=== PATIENT | male | born 1950 | race Caucasian/White ===

== ENCOUNTER 2019-01-30 10:44 | Day surgery (SDC) | payer MEDICARE, OTHER ==
[~2019-01-30] VITALS: Ht 185.4 cm; Wt 102.3 kg
[2019-01-30] MEDS ORDERED: FINA5 (11:55)
[2019-01-30] MEDS ORDERED: TAMS.4ER (11:56)
== END 2019-01-30 14:05 | disposition home or self-care (01) ==
LOC: ORSCSDS 10:44
PROVIDERS: Podiatrist Foot & Ankle Surgery
PROC: 0SPG04Z Removal of Internal Fixation Device from Left Ankle Joint, Open Approach (ICD-10-PCS; principal; 2019-01-30 12:30)
DX: T84.84XA Pain due to internal orthopedic prosthetic devices, implants and grafts, initial encounter (principal); Z96.9 Presence of functional implant, unspecified; M19.072 Primary osteoarthritis, left ankle and foot; J45.909 Unspecified asthma, uncomplicated; K21.9 Gastro-esophageal reflux disease without esophagitis; Z79.899 Other long term (current) drug therapy
CPT/HCPCS: J0171; J1100; J2250; J2405; J2704; J3010; J7120

== ENCOUNTER 2019-04-25 14:56 | Observation (INO) | payer MEDICARE, OTHER ==
[~2019-04-25] VITALS: Ht 188 cm; Wt 104.6 kg
[~2019-04-25 14:56] MED LIST: FINA5; OMEPRAZOLE20 MG PO; TAMS.4ER
--- NOTE | 2019-04-26 09:24 | NUR ---
Ambulatory in Day Surgery History, Chart, Medications and Allergies reviewed before start of procedure.Lungs clear T/O to Auscultation. Patient confirms NPO status and agrees with scheduled surgery. Patient reports completing Chlorhexadine shower X2 prior to admission to hospital.Surgical site prepped with 2% Chlorhexidine cloth wipe. Patient States Post-Procedure ride home has been arranged.
--- NOTE | 2019-04-26 17:58 | NUR ---
SUMMARY SITTING UP IN CHAIR EATING DINNER. PATIENT REPORTS PAIN IS ADEQUATELY CONTROLLED. PT REPORTS VERY SLIGHT TINGLING TO LEFT TOES. TOES PINK, WARM WITH PEDAL PULSES INTACT. PT STATES HE DID WELL USING CRUTCHES TO WALL WITH PT AND ANTICIPATES DISCHARGE TO HOME IN THE MORNING
--- NOTE | 2019-04-27 04:16 | NUR ---
SHIFT SUMMARY POD 1 LEFT TOTAL ANKLE AND ACHILLES LENGTHENING PT AAOX4 DBP ELEVATED , RECHECKED 30 MIN LATER AND BACK TO WNL. PT MEDICATED FOR PAIN PER EMAR. TOLERATING PO WELL. PT AMBULATED WITH WALKER STBY ASSIST WITH GAIT BELT. FOLLOWS PRECAUTIONS WELL. PT SLEEPING DURING SHIFT. PLAN IS TO GO HOME TODAY.
[2019-04-27 05:00] LABS: BASOPHILS ABSOLUTE AUTO 0.02 K/mm3 (0.00-0.23); BASOPHILS PERCENT AUTO 0 % (0-2); EOSINOPHILS ABSOLUTE AUTO 0.01 K/mm3 (0.00-0.68); EOSINOPHILS PERCENT AUTO 0 % (0-6); Hematocrit 42.7 % (37.0-53.0); Hemoglobin 14.1 g/dL (13.5-17.5); IMMATURE GRAN ABSOLUTE AUTO 0.09 K/mm3 (0.00-0.10); IMMATURE GRAN PERCENT AUTO 1 % (0-1); LYMPHOCYTES PERCENT AUTO 9 % (21-46); MONOCYTES ABSOLUTE AUTO 1.18 K/mm3 (0.16-1.47); MONOCYTES PERCENT AUTO 8 % (4-13); Mean Corpuscular HGB 31.5 pg (26.0-34.0); Mean Corpuscular Volume 96 fL (80-100); NEUTROPHILS PERCENT AUTO 82 % (41-73); Platelet Count 210 K/mm3 (150-400); RDW Coefficient Variation 12.1 % (11.7-14.2); RDW Standard Deviation 42.9 fL (35.1-46.3); Red Blood Cell Count 4.47 M/mm3 (4.30-5.90)
[2019-04-27 05:39] LABS: Anion Gap 7 mmol/L (6-16); Blood Urea Nitrogen 18 mg/dL (8-24); Bun/Creatinine Ratio 20.9 (12.0-20.0); CO2, Blood 24 mmol/L (21-32); Calcium, Blood 8.3 mg/dL (8.5-10.1); Chloride, Blood 107 mmol/L (98-108); Creatinine, Blood 0.86 mg/dL (0.60-1.20); Glomerular Filtration Rate >60 (60-); Glucose, Blood 111 mg/dL (70-99); Potassium, Blood 4.1 mmol/L (3.5-5.5); Sodium, Blood 138 mmol/L (136-145)
[2019-04-27] MEDS ORDERED: Senna Plus Tab1 EACH PO (11:15)
[2019-04-27] MEDS ORDERED: Percocet 5-3251 EACH PO (11:22)
--- NOTE | 2019-04-27 13:05 | NUR ---
PATIENT D/C'D HOME WITH SO AT THIS TIME; STATES UNDERSTANDING OF WOUND CARE, MEDS, F/U APPT, ACTIVITY, ETC. PATIENT STATES PAIN CONTROLLED, TOLERATING PO, VOIDING.
--- NOTE | 2019-05-02 13:41 | NUR ---
05/02/19 1341 Filomena Calero VERIFICATIONS: EDIT CHART.
== END 2019-04-27 13:05 | disposition home or self-care (01) ==
LOC: SURS 04-26 08:44 → PRE IP 04-26 08:44 → SURS 04-26 08:44 → PRE IP 04-26 10:00 → SURS 04-26 15:25
PROVIDERS: Nurse Practitioner Acute Care; Podiatrist Foot & Ankle Surgery; ADMIT Hospitalist
PROC: 0SRG0JZ Replacement of Left Ankle Joint with Synthetic Substitute, Open Approach (ICD-10-PCS; principal; 2019-04-26 10:00)
DX: M19.072 Primary osteoarthritis, left ankle and foot (principal); M24.572 Contracture, left ankle; K21.9 Gastro-esophageal reflux disease without esophagitis; J45.909 Unspecified asthma, uncomplicated; Z88.5 Allergy status to narcotic agent; Z88.2 Allergy status to sulfonamides; Z79.899 Other long term (current) drug therapy; Z85.46 Personal history of malignant neoplasm of prostate
CPT/HCPCS: 36415; 73610; 80048; 85025; 86850; 86900; 86901; 88300; 97110; 97116; 97162; 97165; 97535; C1713; C1776; G0378; J0171; J0735; J1100; J1885; J2250; J2405; J2704; J2795; J3010; J3370; J7120

== ENCOUNTER 2019-06-13 14:24 | Inpatient (IN) | payer MEDICARE, OTHER ==
[~2019-06-13] VITALS: Ht 188 cm; Wt 95.8 kg
[~2019-06-13 14:24] MED LIST changes: +Percocet 5-3251 EACH PO; +Senna Plus Tab1 EACH PO
[2019-06-13] MEDS ORDERED: TAMS.4ER PO (16:47)
[2019-06-13] MEDS ORDERED: FINA5 PO (17:03)
--- NOTE | 2019-06-13 18:37 | NUR ---
06/13/19 183 Aaliyah Lizama PT ON SCHEDULED ANTIBIOTICS
--- NOTE | 2019-06-13 19:53 | NUR ---
ARRIVAL. PT ARRIVED TO UNIT FROM OR VIA GURNEY. PT TRANSFERED TO BED WITH 4 ASSIST AND SLIDE SHEET. PT DENIES PAIN. ABLE TO HELP WITH REPOSITIONING AND ROLLING TO REMOVE LINENS. LEFT LEG IS MOIST DRESSING FROM OR DRIES. CAP REFILL IN LEFT FOOT <3, SENSATION INTACT. PT DENIES N/T. PT AND GUEST ORIENTED TO UNIT, CALL LIGHT IN REACH.
[2019-06-13 20:30] LABS: BASOPHILS ABSOLUTE AUTO 0.03 K/mm3 (0.00-0.23); BASOPHILS PERCENT AUTO 0 % (0-2); EOSINOPHILS ABSOLUTE AUTO 0.14 K/mm3 (0.00-0.68); EOSINOPHILS PERCENT AUTO 1 % (0-6); Hematocrit 41.1 % (37.0-53.0); Hemoglobin 13.6 g/dL (13.5-17.5); IMMATURE GRAN ABSOLUTE AUTO 0.05 K/mm3 (0.00-0.10); IMMATURE GRAN PERCENT AUTO 0 % (0-1); LYMPHOCYTES ABSOLUTE AUTO 0.99 K/mm3 (0.84-5.20); LYMPHOCYTES PERCENT AUTO 9 % (21-46); MONOCYTES ABSOLUTE AUTO 1.23 K/mm3 (0.16-1.47); MONOCYTES PERCENT AUTO 11 % (4-13); Mean Corpuscular HGB 30.7 pg (26.0-34.0); Mean Corpuscular HGB Conc 33.1 g/dL (31.5-36.5); Mean Corpuscular Volume 93 fL (80-100); Mean Platelet Volume 8.6 fL (9.1-12.4); NEUTROPHILS ABSOLUTE AUTO 9.09 K/mm3 (1.96-9.15); NEUTROPHILS PERCENT AUTO 79 % (41-73); Platelet Count 282 K/mm3 (150-400); RDW Coefficient Variation 11.6 % (11.7-14.2); RDW Standard Deviation 39.7 fL (35.1-46.3); Red Blood Cell Count 4.43 M/mm3 (4.30-5.90); White Blood Cell Count 11.53 K/mm3 (4.00-11.30)
--- NOTE | 2019-06-13 20:37 | NUR ---
Post surgical patient is A&Ox3 presents calm witth good eye contact soft speech gave permission @2038 for this student to give care 06/14/2019.
[2019-06-13 20:48] LABS: Alanine Aminotransfer (ALT/SGP 29 U/L (12-78); Albumin, Blood 3.3 g/dL (3.4-5.0); Albumin/Globulin Ratio 0.8 (0.8-1.8); Alk Phos 84 U/L (50-136); Anion Gap 4 mmol/L (6-16); Aspartate Aminotrans (AST/SGOT 17 U/L (12-37); Bilirubin, Total 0.4 mg/dL (0.1-1.0); Blood Urea Nitrogen 16 mg/dL (8-24); Bun/Creatinine Ratio 18.7 (12.0-20.0); CO2, Blood 27 mmol/L (21-32); Calcium, Blood 8.6 mg/dL (8.5-10.1); Chloride, Blood 108 mmol/L (98-108); Creatinine, Blood 0.86 mg/dL (0.60-1.20); Globulin, Blood 3.9 g/dL (2.2-4.0); Glomerular Filtration Rate >60 (60-); Glucose, Blood 133 mg/dL (70-99); Sodium, Blood 139 mmol/L (136-145); Total Protein, Blood 7.2 g/dL (6.4-8.2)
[2019-06-14 04:48] LABS: BASOPHILS ABSOLUTE AUTO 0.04 K/mm3 (0.00-0.23); BASOPHILS PERCENT AUTO 0 % (0-2); EOSINOPHILS ABSOLUTE AUTO 0.21 K/mm3 (0.00-0.68); EOSINOPHILS PERCENT AUTO 2 % (0-6); Hematocrit 36.8 % (37.0-53.0); Hemoglobin 12.3 g/dL (13.5-17.5); IMMATURE GRAN ABSOLUTE AUTO 0.04 K/mm3 (0.00-0.10); IMMATURE GRAN PERCENT AUTO 0 % (0-1); LYMPHOCYTES ABSOLUTE AUTO 1.54 K/mm3 (0.84-5.20); LYMPHOCYTES PERCENT AUTO 15 % (21-46); MONOCYTES ABSOLUTE AUTO 1.59 K/mm3 (0.16-1.47); MONOCYTES PERCENT AUTO 15 % (4-13); Mean Corpuscular HGB 31.2 pg (26.0-34.0); Mean Corpuscular HGB Conc 33.4 g/dL (31.5-36.5); Mean Corpuscular Volume 93 fL (80-100); Mean Platelet Volume 8.9 fL (9.1-12.4); NEUTROPHILS ABSOLUTE AUTO 7.11 K/mm3 (1.96-9.15); NEUTROPHILS PERCENT AUTO 68 % (41-73); Platelet Count 273 K/mm3 (150-400); RDW Coefficient Variation 11.6 % (11.7-14.2); RDW Standard Deviation 39.8 fL (35.1-46.3); Red Blood Cell Count 3.94 M/mm3 (4.30-5.90); White Blood Cell Count 10.53 K/mm3 (4.00-11.30)
[2019-06-14 05:11] LABS: Anion Gap 7 mmol/L (6-16); Blood Urea Nitrogen 12 mg/dL (8-24); Bun/Creatinine Ratio 15.1 (12.0-20.0); CO2, Blood 25 mmol/L (21-32); Calcium, Blood 8.3 mg/dL (8.5-10.1); Chloride, Blood 107 mmol/L (98-108); Creatinine, Blood 0.79 mg/dL (0.60-1.20); Glomerular Filtration Rate >60 (60-); Glucose, Blood 93 mg/dL (70-99); Potassium, Blood 3.9 mmol/L (3.5-5.5); Sodium, Blood 139 mmol/L (136-145)
--- NOTE | 2019-06-14 06:10 | NUR ---
SHIFT SUMMARY POD 1 I&D LEFT ANKLE. AAOX4,VSS. PT MEDICATED WITH FENT FOR BREAKTHROUGH PAIN AND NEWLY ORDERED NORCO HAS BEEN CONTROLLING PAIN. PT REPORTED BEING ABLE TO GET SLEEP. WOUND VAC IS DRAINING SMALL AMOUNT SS DRAINAGE. SENSATION INTACT IN RIGHT FOOT, CAP REFILL <3, WIGGLES TOES. TOLERATING PO WELL, DRINKING FLUIDS FREQUENTLY. PT VOIDING IN URINAL.
--- NOTE | 2019-06-14 17:44 | NUR ---
SHIFT SUMMARY PT A&OX4, VSS, POD1 I&D LLE, NWB, WIGGLES TOES, GOOD SENSATION AND CAP REFILL, ELEVATED ON PILLOWS. PAIN MANAGED WITH 10 MG PERCOCET AND TORADOL. LOUIE PO, DENIES N&V. VOIDING WELL USING URINAL. PLAN IS TO RETURN TO OR ON WEDNESDAY FOR SUTURES OR WOUND VAC CHANGE WHILE RECEIVING ABX IN MEANTIME. WILL REPORT TO ONCOMING NOC RN.
--- NOTE | 2019-06-15 04:58 | NUR ---
SHIFT SUMMARY: ABBY HAS RESTED INTERMITTENTLY DURING THE NIGHT. HE IS TOLERATING PO INTAKE WELL. HE IS USING THE URINAL WITHOUT DIFFICULTY. THE TOES OF HIS LEFT FOOT HAVE <3 SECOND CAPILLARY REFILL. ABOVE THE RAMY WRAP HIS CALF IF SWOLLEN AND WARM TO THE TOUCH. HE REPORTS THAT IT IS IMPROVING SINCE SURGERY. HE REPOSITIONS HIMSELF FREQUENTLY IN BED. HE USES HIS CALL LIGHT APPROPRIATELY. THE WOUND VAC IS PATENT, DRAINING SS FLUID. IV TO LEFT FOREARM PATENT. HE IS LYING COMFORTABLY IN BED WITH HIS CALL LIGHT IN REACH.
[2019-06-15 09:30] LABS: Vancomycin, Trough 12.6 ug/mL (5.0-10.0)
--- NOTE | 2019-06-15 16:24 | NUR ---
SHIFT SUMMARY PT A&OX4, VSS, POD2 I&D LLE, WOUND VAC IN PLACE. NWB, WIGGLES TOES, GOOD SENSATION AND CAP REFILL, ELEVATED ON PILLOWS. PAIN MANAGED WITH 10 MG PERCOCET AND TORADOL. LOUIE PO, DENIES N&V. VOIDING WELL USING URINAL. PLAN IS TO RETURN TO OR ON WEDNESDAY - PT TO BE NPO AT MIDNIGHT. WILL REPORT TO ONCOMING NOC RN.
--- NOTE | 2019-06-16 04:43 | NUR ---
SHIFT SUMMARY POD 3 S/P LEFT FOOT I/D. WOUND VAC TO LLE IN PLACE, RAMY WRAP C/D/I. NPO SINCE MIDNIGHT, PER ORDERS. REPORTS VOIDING WITHOUT DIFFICULTY AND PASSING FLATUS. PAIN MANAGED WITH 2 PO TABS. APPEARS TO HAVE RESTED WELL T/O SHIFT. IS CURRENTLY RESTING IN BED WITH CALL LIGHT IN HAND. PLAN FOR OR THIS MORNING. WILL CONT TO MONITOR AND GIVE REPORT TO ONCOMING RN.
--- NOTE | 2019-06-16 06:31 | NUR ---
PT TO OR AT THIS TIME
--- NOTE | 2019-06-16 06:43 | NUR ---
RAMY WRAP TO LLE INTACT, NO CHLORHEXIDINE PREP DONE.
--- NOTE | 2019-06-16 06:57 | NUR ---
LLE elevated on a pillow. History, Chart, Medications and Allergies reviewed before start of procedure. Patient confirms NPO status and agrees with scheduled surgery. Patient reports leaving his partial dentures at home.
--- NOTE | 2019-06-16 07:06 | NUR ---
PATIENT IS CURRENTLY OUT OF ROOM TO OR
[2019-06-16 10:25] LABS: Anion Gap 5 mmol/L (6-16); Blood Urea Nitrogen 9 mg/dL (8-24); Bun/Creatinine Ratio 10.8 (12.0-20.0); CO2, Blood 26 mmol/L (21-32); Calcium, Blood 8.6 mg/dL (8.5-10.1); Chloride, Blood 109 mmol/L (98-108); Creatinine, Blood 0.83 mg/dL (0.60-1.20); Glomerular Filtration Rate >60 (60-); Glucose, Blood 88 mg/dL (70-99); Potassium, Blood 4.2 mmol/L (3.5-5.5); Sodium, Blood 140 mmol/L (136-145)
--- NOTE | 2019-06-16 10:30 | NUR ---
[address] DAVENPORT REGARDINGPATIENTS POST OP ACTIVITY. DISCUSSED WITH PATIENT THAT HE IS NOT TO BEND LEFT ANKLE, NWB AND IS TO KEEP ICE BEHIND LEFT KNEE AND ELEVATE LEFT LEG. PATIENT VERBALIZES UNDERSTANDING OF POST OP RESTRICTIONS
--- NOTE | 2019-06-16 12:31 | NUR ---
PATIENT CONCERNED THAT SPLINT IS DAMP, REQUESTS DR DAVENPORT BE CONTACTED PATIENT STATES IT WAS STRESSED TO HIM THAT LEFT LEG BE KEPT DRY. SPOKE WITH DR DAVENPORT REGARDING PATINTS CONCERNS , NO NEW ORDERS
--- NOTE | 2019-06-16 18:32 | NUR ---
LEFT ANKLE ELEVATED AND ICED THROUGHOUT SHIFT. REINFORCED THROUGHOUT SHIFT WITH PATIENT, THE IMPORTANCE OF NON WEIGHT BEARING AND NO MOVEMENT OF LEFT ANKLE- PT VERBALIZES UNDERSTANDING. PT REPORTS ADEQUATE PAIN CONTROL. DENIES ANY NUMBNESS OR TINGLING.
--- NOTE | 2019-06-17 05:07 | NUR ---
SHIFT SUMMARY POD 1 2ND I&D OF LEFT ANKLE/LEG AA0X4, VSS. PT UP TO RESTROOM AND VOIDING. HAVE REEDUCATED PT ON IMPORTANCE OF NWB STATUS. PT HAS BEEN COMPLIANT. TOLERATING PO WELL. MEDICATED FOR PAIN X1 DURING SHIFT. DRESSING CDI.
[2019-06-17] MEDS ORDERED: Percocet 5-3251 EACH PO (11:15)
[2019-06-17] MEDS ORDERED: ACET325 PO (11:45)
[2019-06-17] MEDS ORDERED: Milk Of Ma400 MG/5 M PO (11:47)
[2019-06-17] MEDS ORDERED: Florastor250 MG PO (11:48)
[2019-06-17] MEDS ORDERED: Bactrim Ds Tab1 EACH PO (11:48)
--- NOTE | 2019-06-19 10:25 | NUR ---
06/19/19 1025 Dora Landry VERIFICATIONS, AUDITS.
== END 2019-06-17 15:20 | disposition home or self-care (01) | DRG 863 ==
LOC: ER 14:24 → SURS 17:31
PROVIDERS: Podiatrist Foot & Ankle Surgery; ADMIT Internal Medicine
PROC: 0HDNXZZ Extraction of Left Foot Skin, External Approach (ICD-10-PCS; principal; 2019-06-13 17:45)
PROC: 0HDNXZZ Extraction of Left Foot Skin, External Approach (ICD-10-PCS; 2019-06-16)
DX: T81.42XA Infection following a procedure, deep incisional surgical site, initial encounter (principal); L03.116 Cellulitis of left lower limb; K21.9 Gastro-esophageal reflux disease without esophagitis; Z87.891 Personal history of nicotine dependence; Z85.46 Personal history of malignant neoplasm of prostate; J45.909 Unspecified asthma, uncomplicated; N40.0 Benign prostatic hyperplasia without lower urinary tract symptoms
CPT/HCPCS: 36415; 73610; 80048; 80053; 80202; 84145; 85025; 85651; 86140; 87040; 87070; 87075; 87077; 87147; 87186; 87205; 96374; 97110; 97112; 97161; 97165; 97535; 99285-25; A9270-GY; J1170; J1885; J2250; J2405; J2704; J2765; J3010; J3260; J3370; J7050; J7120; Q0163

== ENCOUNTER 2019-06-29 14:14 | Inpatient (IN) | payer MEDICARE, OTHER ==
[~2019-06-29] VITALS: Ht 185.4 cm; Wt 103.8 kg
[~2019-06-29 14:14] MED LIST changes: +ACET325 PO; +Bactrim Ds Tab1 EACH PO; +FINA5 PO; +Florastor250 MG PO; +Milk Of Ma400 MG/5 M PO; +TAMS.4ER PO
[2019-06-29 14:48] LABS: BASOPHILS ABSOLUTE AUTO 0.05 K/mm3 (0.00-0.23); BASOPHILS PERCENT AUTO 0 % (0-2); EOSINOPHILS ABSOLUTE AUTO 0.19 K/mm3 (0.00-0.68); EOSINOPHILS PERCENT AUTO 2 % (0-6); Hematocrit 42.2 % (37.0-53.0); Hemoglobin 14.1 g/dL (13.5-17.5); IMMATURE GRAN ABSOLUTE AUTO 0.06 K/mm3 (0.00-0.10); IMMATURE GRAN PERCENT AUTO 1 % (0-1); LYMPHOCYTES ABSOLUTE AUTO 1.59 K/mm3 (0.84-5.20); LYMPHOCYTES PERCENT AUTO 13 % (21-46); MONOCYTES ABSOLUTE AUTO 1.15 K/mm3 (0.16-1.47); MONOCYTES PERCENT AUTO 10 % (4-13); Mean Corpuscular HGB 30.3 pg (26.0-34.0); Mean Corpuscular HGB Conc 33.4 g/dL (31.5-36.5); Mean Corpuscular Volume 91 fL (80-100); Mean Platelet Volume 8.4 fL (9.1-12.4); NEUTROPHILS PERCENT AUTO 75 % (41-73); Platelet Count 415 K/mm3 (150-400); RDW Coefficient Variation 11.8 % (11.7-14.2); Red Blood Cell Count 4.66 M/mm3 (4.30-5.90); White Blood Cell Count 12.04 K/mm3 (4.00-11.30)
[2019-06-29 15:06] LABS: Alanine Aminotransfer (ALT/SGP 17 U/L (12-78); Albumin, Blood 3.2 g/dL (3.4-5.0); Anion Gap 10 mmol/L (6-16); Aspartate Aminotrans (AST/SGOT 17 U/L (12-37); Blood Urea Nitrogen 19 mg/dL (8-24); CO2, Blood 20 mmol/L (21-32); Chloride, Blood 108 mmol/L (98-108); Glucose, Blood 103 mg/dL (70-99); Potassium, Blood 3.9 mmol/L (3.5-5.5); Sodium, Blood 138 mmol/L (136-145)
[2019-06-29 15:10] LABS: Albumin/Globulin Ratio 0.6 (0.8-1.8); Alk Phos 79 U/L (50-136); Bilirubin, Total 0.6 mg/dL (0.1-1.0); Bun/Creatinine Ratio 20.5 (12.0-20.0); Creatinine, Blood 0.93 mg/dL (0.60-1.20); Glomerular Filtration Rate >60 (60-); Total Protein, Blood 8.2 g/dL (6.4-8.2)
[2019-06-29] MEDS ORDERED: OMEP20ER PO (17:02)
--- NOTE | 2019-06-29 18:06 | NUR ---
BAG OF CLOTHES COAT AND CRUTCHES TAKE TO ROOM 364. PATIENT STATES CELL PHONE IN BAG
--- NOTE | 2019-06-30 04:09 | NUR ---
SHIFT SUMMARY ASSUMED CARE OF PT AT 1950. PT IS A/O X3 AND STATES HE HAS NUMBNESS IN HIS EXTREMITIES. HEART SOUNDS REGULAR, LUNG SOUNDS CLEAR PT DENIES CP/SOB AT THIS TIME. PT HAS A WOUND VAC ON HIS L ANKLE, DRAINING MODERATE AMOUNT OF RED FLUIDS, DRESSING TO BE CHANGED BY SURGEON, PT C/O PAIN AND ITCHING IN HIS L FOOT, HOSPITALIST CALLED AND BENADRYL ORDERED, MEDICATED PER EMAR FOR PAIN, PT NON WEIGHT BEARING ON L FOOT. PT GIRLFRIEND STAYED THE NIGHT. SON CALLED EARLY YESTERDAY EVENING ASKING ABOUT PT, HE LIVES IN [place] AND IS CONCERNED THAT THE GIRLFRIEND ISNT TAKING PROPER CARE OF HIS FATHER, EXPRESSED CONCERN FOR THEIR "DIRTY LIVING SITUATION". PT IS VERY FRIENDLY AND COOPERATIVE WITH CARE. MORNING MEDICATIONS AND ABX HAVE NOT BEEN ENTERED INTO EMAR YET, WILL NOTIFY DAYSHIFT NURSE. CALL LIGHT IN REACH, BED IN LOWEST POSTION, WILL CONTINUE TO MONITOR UNTIL DAYFHIT NURSE ARRIVES.
--- NOTE | 2019-06-30 07:30 | NUR ---
PT STATES DOING OVERALL PRETTY WELL. DENIES PAIN AT THIS TIME. A/O. WAS HAND EDGE BANDER IN PAST. ANKLE WRAPPED. SURG I& D LAST KIKE. SEROUS FLUID IN WOUND VAC CONTAINER. SUCTION HOLDING. MARKED LEVEL AND WILL CONTINUE TO MONITOR. H/R REG, NO MURMER NOTED. NO TELE. LUNGS CLEAR RESP EASY, UNALBORED. ON R.A. BT X4 LAST BM THIS AM. VOIDS URINAL AND SBA TO BATHROOM WITH FWW. BED IN LOW POSITION, CALL LITE IN REACH, CALLS APPROP
--- NOTE | 2019-06-30 19:34 | NUR ---
PT PLEASANT TODAY. AT BEDSIDE. STATES PAIN WELL MANAGED WITH OXYCODONE. 3 SURGEON/BONE/FOOT DRS IN TODAY. EXPLAINED WILL DO SURG AND MAY LOSE FOOT WEDNESDAY. WOUND VAC NOT DRAWING ANY FURTHER FLUID TODAY. LINE MARKED AT 7AM BY ME REMAINS SAME LEVEL AT 7PM. NO OTHER CONCERNS AT THIS TIME .BED IN LOW POSITION, CALL OLITE IN REACH, CALLS APPROP
--- NOTE | 2019-06-30 22:23 | NUR ---
BEGINNING SHIFT SUMMARY ASSUMED CARE OF PT AT 1900. PT IS A/O X4, DENIES N/T AT THIS TIME. HEART SOUNDS REGULAR, LUNG SOUNDS CLEAR, DENIES SOB/CP AT THIS TIME. PT C/O PAIN IN HIS L FOOT, MEDICATED PER EMAR. WOUND VAC ON HIS L ANKLE DRAINING RED SANGUINEOUS FLUIDS, NO INCEASE IN DRAINAGE SINCE YESTERDAY NIGHT. PT USES WALKER TO BATHROOM, AND URINAL IN BED, URINE CLEAR YELLOW. PT STATES HE IS PRETTY TIRED AND IS READY TO SLEEP TONIGHT. CALL LIGHT IN REACH, BED IN LOWEST POSTION, WILL CONTINUE TO MONITOR.
--- NOTE | 2019-07-01 04:52 | NUR ---
END SHIFT SUMMARY NO ACUTE CHANGES NOTED T/O THE NIGHT. PT AOKE ONCE DURING THE NIGHT AROUND 0000 AND ASKED FOR MORE PAIN MEDICATION. PT HAS SLEPT SINCE. CALL LIGHT IN REACH, BED IN LOWEST POSTION, WILL CONTINUE TO MONITOR UNTIL DAYSHIFT NURSE ARRIVES.
--- NOTE | 2019-07-01 08:00 | NUR ---
pt laying in bed with dressing on left foot and wound vac, a/ox3, pleasant and cooperative with care, follows commands well, doing ok with pain, lungs are clear t/o, reps even and unlabord, no cough noted, hrr, no edema noted to right le, moves upper ext well, can wiggle toes, sudheer, call light in reach.
--- NOTE | 2019-07-01 12:00 | NUR ---
gave a pt. a percocet for pain, brought it down from a 5 to a 3, states he's comfortable. no further needs. call light in reach.
--- NOTE | 2019-07-01 14:00 | NUR ---
ASSUMED CARE OF PATIENT FROM [facility]SE AT THIS TIME. NO ACUTE CHANGES FROM AM ASSESSMENT. PATIENT REPORTS PAIN WITHIN TOLERABLE LIMITS AT THIS TIME. WOUND VAC IN PLACE WITH PATENT SEAL.
--- NOTE | 2019-07-01 17:20 | NUR ---
SHIFT SUMMARY NO ACUTE CHANGES TODAY. PATIENT TO HAVE SURGERY ON LEFT FOOT TOMORROW. NPO @ [place]. XANAX GIVEN X1 FOR ANXIETY. OTHERWISE NO COMPLAINTS THIS AFTERNOON. VSS
[2019-07-02 00:40] LABS: Source, Urine Catheter
[2019-07-02 00:44] LABS: Bilirubin, Urine Neg (Neg); Blood, Urine Neg (Neg); Glucose Qualitative, Urine Neg (Neg); Ketones, Urine Neg (Neg); Leukocyte Esterase, Urine Neg (Neg); Nitrite, Urine Neg (Neg); Protein, Urine Neg (Neg); Urobilinogen, Urine NORM (Normal)
[2019-07-02 00:48] LABS: Appearance, Urine Clear (Clear); Color, Urine Yellow (P-Yellow)
[2019-07-02 05:33] LABS: BASOPHILS ABSOLUTE AUTO 0.05 K/mm3 (0.00-0.23); BASOPHILS PERCENT AUTO 1 % (0-2); EOSINOPHILS ABSOLUTE AUTO 0.44 K/mm3 (0.00-0.68); EOSINOPHILS PERCENT AUTO 5 % (0-6); Hemoglobin 13.8 g/dL (13.5-17.5); IMMATURE GRAN ABSOLUTE AUTO 0.04 K/mm3 (0.00-0.10); IMMATURE GRAN PERCENT AUTO 0 % (0-1); LYMPHOCYTES ABSOLUTE AUTO 2.19 K/mm3 (0.84-5.20); LYMPHOCYTES PERCENT AUTO 24 % (21-46); MONOCYTES ABSOLUTE AUTO 0.89 K/mm3 (0.16-1.47); MONOCYTES PERCENT AUTO 10 % (4-13); Mean Corpuscular HGB 29.5 pg (26.0-34.0); Mean Corpuscular HGB Conc 32.1 g/dL (31.5-36.5); Mean Corpuscular Volume 92 fL (80-100); Mean Platelet Volume 8.8 fL (9.1-12.4); NEUTROPHILS ABSOLUTE AUTO 5.65 K/mm3 (1.96-9.15); NEUTROPHILS PERCENT AUTO 61 % (41-73); Platelet Count 355 K/mm3 (150-400); RDW Coefficient Variation 11.5 % (11.7-14.2); Red Blood Cell Count 4.68 M/mm3 (4.30-5.90); White Blood Cell Count 9.26 K/mm3 (4.00-11.30)
[2019-07-02 05:54] LABS: Anion Gap 6 mmol/L (6-16); Blood Urea Nitrogen 14 mg/dL (8-24); Bun/Creatinine Ratio 16.2 (12.0-20.0); CO2, Blood 23 mmol/L (21-32); Chloride, Blood 110 mmol/L (98-108); Creatinine, Blood 0.87 mg/dL (0.60-1.20); Glomerular Filtration Rate >60 (60-); Glucose, Blood 86 mg/dL (70-99); Sodium, Blood 139 mmol/L (136-145)
--- NOTE | 2019-07-02 06:08 | NUR ---
SHIFT SUMMARY A/O, ABLE TO MAKE NEEDS KNOWN. COOPERATIVE WITH CARE. CALLS AND ANSWERS QUESTIONS APPROPRIATELY. C/O PAIN/DISCOMFORT TO L ANKLE X1; MEDICATED PER EMAR. APPEARED TO REST MUCH OF SHIFT. NO ACUTE CHANGES NOTED OVERNIGHT. VSS/AFEBRILE. BED IN LOWEST POSITION. CALL LIGHT AND BELONGINGS WITHIN REACH. WCTM. REPORT TO ONCOMING RN.
--- NOTE | 2019-07-02 08:01 | NUR ---
PATIENT TO SURGERY.
--- NOTE | 2019-07-02 09:42 | NUR ---
ASSUMED PT CARE FROM GUERDA FUNK, OR DEPT. PT RESTING QUIETLY. VSS. NO COMPLAINTS.
--- NOTE | 2019-07-02 10:50 | NUR ---
PATIENT RETURNED FROM SURGERY. VSS. PATIENT SCD TO R LEG. WOUND VAC PATENT AND SPLINT PLACED TO LEFT ANKLE.
[2019-07-02 11:33] LABS: Vancomycin, Trough 13.3 ug/mL (5.0-10.0)
--- NOTE | 2019-07-02 18:16 | NUR ---
SHIFT SUMMARY PATIENT HAD SURGERY THIS AM, DR DAVENPORT REMOVED ANKLE HARDWARE, INSERTED AN ABX SPACER AND WOUND VAC REPLACED. PATIENT HAS RED BLOODY DRAINAGE. PAIN HAS BEEN MANAGEABLE, MEDICATED WITH PERCOCET X 1. NO OTHER COMPLAINTS TODAY. PT WORKED WITH HIM. ID CONSULT ORDERED BUT STILL NEEDS TO BE CALLED.
--- NOTE | 2019-07-03 06:05 | NUR ---
SHIFT SUMMARY A/O, ABLE TO MAKE NEEDS KNOWN. COOPERATIVE WITH CARE. CALLS AND ANSWERS QUESTIONS APPROPRIATELY. C/O PAIN/DISCOMFORT TO LLE/ L ANKLE, RATED 4/10; MEDICATED X2 WITH ADEQUATE RELIEF. APPEARED TO REST MUCH OF SHIFT. VSS/AFEBRILE. WOUND VAC PATENT AND DRAINING TO SUCTION. NO ACUTE CHANGES NOTED OVERNIGHT. BED IN LOWEST POSITION. CALL LIGHT AND BELONGINGS WITHIN REACH. WCTM. REPORT TO ONCOMING RN.
[2019-07-03 11:53] LABS: Vancomycin, Trough 13.4 ug/mL (5.0-10.0)
--- NOTE | 2019-07-03 12:03 | NUR ---
Pt gave verbal consent for me to treat.
--- NOTE | 2019-07-03 14:08 | NUR ---
MESSAGE LEFT WITH DR. BISHOP MULLEN ELEFT WITH DR. DAVENPORT THAT PAPERWORK REGAURDING PT WOUND VAC NEEDS TO BE SIGNED NO LATER THAN TOMORROW MORNING
--- NOTE | 2019-07-03 17:42 | NUR ---
SHIFT SUMMARY PT WOUND VAC PATENT AND DRAINING WELL. PT MEDICATED FOR PAIN TWICE THIS SHIFT. PT POSSIBLE DC TOMORROW. PICC LINE TO BE PLACED FOR OUTPT ABX THERAPY. STAFF ANTISUBMARINE OFFICER NOTIFIED. PT SEEN BY ID WHO MADE THIS RECCOMENDATION. NO OTHER CHANGES IN ASSESSMENT AT THIS TIME. VSS. WILL CONTINUE TO MONITOR UNTIL TURNOVER IS COMPLETE.
--- NOTE | 2019-07-04 06:15 | NUR ---
SHIFT SUMMARY AOX4. DENIES N/V OR DYSPNEA. REPORTS 5-7 PAIN IN LLE, MEDICATED 2X W/PERCOCET & STATES RELIEF. POD #2 FOR I&D. CAST & WOUND VAC IN PLACE ON LLE, VAC IS PATENT & HAS SANGUNIOUS DRAINAGE IN CANISTER. ABLE TO WIGGLE TOES ON LLE & CAP REFILL <3. PT NON-WEIGHT BEARING ON LLE, YET INDEPENDENTLY ABLE TO TRANSFER SELF IN ROOM. CALL LIGHT IN REACH. WCTM.
--- NOTE | 2019-07-04 09:36 | NUR ---
07/04/19 0936 Filomena Calero VERIFICATIONS: EDIT CHART.
[2019-07-04] MEDS ORDERED: CEFTRIAXONE2 GM IV (16:39)
[2019-07-04] MEDS ORDERED: MIRT15 PO (16:39)
== END 2019-07-04 17:26 | disposition home or self-care (01) | DRG 856 ==
LOC: ER 14:14 → ERHOLD 14:15 → MEDS 19:42
PROVIDERS: Internal Medicine; Pharmacist; Physician Assistant; Podiatrist Foot & Ankle Surgery; ADMIT Internal Medicine
PROC: 0SBG0ZZ Excision of Left Ankle Joint, Open Approach (ICD-10-PCS; 2019-06-29)
PROC: 0SHG08Z Insertion of Spacer into Left Ankle Joint, Open Approach (ICD-10-PCS; 2019-07-02)
PROC: 0SPG0JZ Removal of Synthetic Substitute from Left Ankle Joint, Open Approach (ICD-10-PCS; principal; 2019-07-02 08:00)
DX: T81.44XA Sepsis following a procedure, initial encounter (principal); A41.01 Sepsis due to Methicillin susceptible Staphylococcus aureus; T81.42XA Infection following a procedure, deep incisional surgical site, initial encounter; Z87.891 Personal history of nicotine dependence; N40.0 Benign prostatic hyperplasia without lower urinary tract symptoms; K21.9 Gastro-esophageal reflux disease without esophagitis; Z85.46 Personal history of malignant neoplasm of prostate
CPT/HCPCS: 36415; 36569; 73610; 80048; 80053; 80202; 81003; 83605; 85025; 85651; 86140; 87040; 87070; 87071; 87075; 87077; 87147; 87186; 87205; 97110; 97116; 97162; 97530; 99284; C1713; C1751; J0696; J1100; J1170; J1885; J1956; J2250; J2370; J2405; J2704; J3010; J3370; J7030; J7050; J7120; Q0163